=== PATIENT | male | born 1980 | race Two or more races ===

== ENCOUNTER 2024-06-08 20:11 | Emergency (ER) | payer MEDICAID ==
[~2024-06-08] VITALS: Ht 180.3 cm; Wt 102.1 kg
[2024-06-08 21:02] VITALS: BP 147/85; TEMP 98.2; O2SAT 98
[2024-06-08] MEDS ORDERED: CIPR7.5D9 RIGHT EAR (21:19)
== END 2024-06-08 22:24 | disposition home or self-care (01) ==
LOC: ER 20:14
DX: H60.91 Unspecified otitis externa, right ear (principal)